=== PATIENT | female | born 1945 | race Caucasian/White ===

== ENCOUNTER 2016-06-25 23:46 | Emergency (ER) | payer OTHER, MEDICARE ==
[~2016-06-25 23:46] MED LIST: AMANTADINE100 MG PO; BACTRIM DS TAB1 EAC2 PO; CALCIUM 600 +1 EA12 PO; CARDURA2 M2 PO; COZAAR50 M1 PO; FIBER LAX625 M1 PO; METHYLPHENIDATE5 M2 PO; METOPROLOL TART75 MG; MULTIVITAMINS1 EAC6 PO; NORVASC10 M2 PO; OMEPRAZOLE; POLYETHYLENE G255 G1 PO; QUETIAPINE FUMA25 M1; RESTORIL30 M1 PO; SENNA8.8 MG/51 PO; TRAZODONE HCL50 M1 PO
[2016-06-26] MEDS ORDERED: OMEPRAZOLE 2MG/ML GT (00:21)
[2016-06-26] MEDS ORDERED: FIBER LAX625 M1 GT (00:22)
[2016-06-26] MEDS ORDERED: BENTYL10 M1 GT (00:23)
[2016-06-26] MEDS ORDERED: BANATROL PLUS1 EACH GT (00:23)
[2016-06-26] MEDS ORDERED: CENTRUM COMPLE1 EAC1 GT (00:23)
[2016-06-26] MEDS ORDERED: TRAZODONE HCL50 M1 GT (00:24)
[2016-06-26] MEDS ORDERED: DEPAKENE250 MG/51 GT (00:24)
[2016-06-26] MEDS ORDERED: RESTORIL15 M1 GT (00:24)
[2016-06-26] MEDS ORDERED: RITALIN20 M1 GT (00:25)
[2016-06-26] MEDS ORDERED: CALCIUM GT (00:26)
[2016-06-26] MEDS ORDERED: AMANTADINE100 MG GT (00:26)
[2016-06-26] MEDS ORDERED: MILK OF MAGNESIA GT (00:27)
[2016-06-26] MEDS ORDERED: ACETAMINOPHEN650 M4 GT (00:28)
[2016-06-26] MEDS ORDERED: ZOFRAN4 M2 GT (00:28)
[2016-06-26] MEDS ORDERED: SEROQUEL25 M2 GT (00:29)
[2016-06-26] MEDS ORDERED: BISCOLAX10 MG PR (00:30)
[2016-06-26] MEDS ORDERED: ENEMEEZ283 MG/5 M PR (00:31)
[2016-06-26 02:46] LABS: URINE BILIRUBIN NEGATIVE (NEG); URINE BLOOD LARGE (NEG); URINE GLUCOSE (UA) NEGATIVE (NEG); URINE KETONE NEGATIVE (NEG); URINE LEUKOCYTE ESTERASE POSITIVE (NEG); URINE NITRITE NEGATIVE (NEG); URINE PROTEIN MODERATE (NEG); URINE SPECIFIC GRAVITY 1.015 (1.003-1.030)
[2016-06-26 02:47] LABS: URINE APPEARANCE HAZY; URINE COLOR STRAW
[2016-06-26 02:55] LABS: URINE BACTERIA 3+; URINE EPITHELIAL CELLS RARE /[HPF] (0-10); URINE RBC FULL FIELD /[HPF] (0-5); URINE WBC FULL FIELD /[HPF] (0-5)
[2016-06-26] MEDS ORDERED: CIPRO500 M2 PO (03:20)
== END 2016-06-26 04:19 ==
LOC: EDMED 23:46
PROVIDERS: Emergency Medicine
DX: S05.8X2A Other injuries of left eye and orbit, initial encounter (principal); N39.0 Urinary tract infection, site not specified; Z96.0 Presence of urogenital implants; Z86.73 Personal history of transient ischemic attack (TIA), and cerebral infarction without residual deficits; Z98.890 Other specified postprocedural states; X58.XXXA Exposure to other specified factors, initial encounter
CPT/HCPCS: J0744